=== PATIENT | male | born 1970 | race Two or more races ===

== ENCOUNTER 2017-10-24 04:42 | Emergency (ER) | payer SELFPAY | END 2017-10-24 06:48 | disposition home or self-care (01) | LOC: ER 06:48 | DX: S16.1XXA Strain of muscle, fascia and tendon at neck level, initial encounter (principal); S39.012A Strain of muscle, fascia and tendon of lower back, initial encounter; S09.90XA Unspecified injury of head, initial encounter; F10.20 Alcohol dependence, uncomplicated; W01.198A Fall on same level from slipping, tripping and stumbling with subsequent striking against other object, initial encounter; Y93.89 Activity, other specified; Y92.091 Bathroom in other non-institutional residence as the place of occurrence of the external cause; Y99.8 Other external cause status | CPT/HCPCS: 70450; 71045; 72100; 72125; 72170; 99284-25 ==